=== PATIENT | female | born 2000 | race Hispanic/Latino ===

== ENCOUNTER 2021-09-28 04:37 | Observation (INO) | payer MEDICAID ==
[~2021-09-28] VITALS: Ht 162.6 cm; Wt 86.6 kg
[2021-09-28] MEDS ORDERED: LACTATED RINGERS 1000ML IV PRN (05:00)
[2021-09-28 05:22] LABS: APPEARANCE,URINE Clear (CLEAR); BILIRUBIN,URINE Negative (NEGATIVE); COLOR,URINE Yellow (YELLOW); GLUCOSE, URINE (UA) Negative (NEGATIVE); KETONES,URINE Negative (NEGATIVE); LEUKOCYTE ESTERASE ,URINE Trace (NEGATIVE); NITRATE,URINE Negative (NEGATIVE); OCCULT BLOOD,URINE Negative (NEGATIVE); PH,URINE 6.5 (5.0-8.0); PROTEIN,URINE POS 1+ mg/dL (NEGATIVE)
[2021-09-28 05:30] LABS: AMPHET/METH SCREEN,URINE NEGATIVE (NEGATIVE); BARBITURATE SCREEN, URINE NEGATIVE (NEGATIVE); BENZODIAZEPINES SCREEN,URINE NEGATIVE (NEGATIVE); CANNABINOID SCREEN,URINE NEGATIVE (NEGATIVE); COCAINE SCREEN,URINE NEGATIVE (NEGATIVE); OPIATE SCREEN,URINE NEGATIVE (NEGATIVE); PHENCYCLIDINE SCREEN,URINE NEGATIVE (NEGATIVE)
[2021-09-28 05:35] LABS: RBC,URINE None Seen /HPF (0-1)
[2021-09-28 05:36] LABS: BACTERIA,URINE Rare /HPF (None Seen); MUCUS,URINE Few LPF (None Seen); SQUAMOUS EPITHELIAL CELL,UR Few /HPF (0-2)
[2021-09-28 06:44] VITALS: BP 132/78
[2021-09-28] MEDS ORDERED: PREN1TAB80 PO (06:48)
[2021-09-28 06:52] LABS: HEMATOCRIT 33.4 % (36-48); MEAN CORPUSCULAR HEMOGLOBIN 28.4 pg (27.0-33.0); MEAN CORPUSCULAR HGB CONC 32.3 g/dL (32.0-36.0); MEAN CORPUSCULAR VOLUME 87.9 fL (79-99); RED BLOOD CELL COUNT(AUTO) 3.8 MIL/uL (4.00-5.50); WHITE BLOOD COUNT (AUTO) 9.7 K/uL (4.8-10.8)
[2021-09-28 11:57] LABS: RAPID PLASMA REAGIN NONREACTIVE (NONREACTIVE)
[2021-09-29 08:15] LABS: HEPATITIS Bs ANTIGEN SCREEN P Negative (Negative)
== END 2021-09-28 09:20 | disposition home or self-care (01) ==
LOC: EDH 04:37 → LDH 04:38
PROVIDERS: ADMIT Obstetrics & Gynecology; ATTEND Obstetrics & Gynecology
DX: O42.92 Full-term premature rupture of membranes, unspecified as to length of time between rupture and onset of labor (principal); Z20.822 Contact with and (suspected) exposure to COVID-19; Z3A.40 40 weeks gestation of pregnancy; Z79.899 Other long term (current) drug therapy
CPT/HCPCS: 36415; 76805; 80305; 81001; 85027; 86592; 86701; 86850; 86900; 86901; 87340; 87390; 87635; 87804 ×2; 96360; 96361; G0378 ×5; G0379; J7120 ×2